=== PATIENT | male | born 1955 | race Hispanic/Latino ===

== ENCOUNTER 2017-11-28 09:09 | Emergency (ER) | payer MEDICAID ==
[2017-11-28 09:18] VITALS: RESP 18; TEMP 97.5
--- NOTE | 2017-11-28 09:56 | C.PDOC ---
History Of Present Illness 62 y/o male presents to ED status post slipping on ice and falling backward hitting head prior to arrival. Patient states he got up and went to work but became confused, unsure of what floor he was in and unable to focus. Patient was sent to ED for further evaluation and denies loc, nausea, vomiting, neck pain or visual changes. - HPI Time Seen by Provider: 11/28/17 09:45 Chief Complaint (Nursing): Trauma History Per: Patient History/Exam Limitations: no limitations Onset/Duration Of Symptoms: Hrs Past Medical History Reviewed: Historical Data, Nursing Documentation, Vital Signs Vital Signs: Last Vital Signs Temp 97.5 F L 11/28/17 09:17 Pulse 90 11/28/17 11:47 Resp 18 11/28/17 11:47 BP 113/81 11/28/17 11:47 Pulse Ox 98 11/28/17 13:56 - Medical History PMH: Depression, Hypercholesterolemia Surgical History: No Surg Hx Family History: States: No Known Family Hx - Social History Hx Alcohol Use: No Hx Substance Use: No - Immunization History Hx Tetanus Toxoid Vaccination: No Hx Influenza Vaccination: No Hx Pneumococcal Vaccination: No Review Of Systems Eyes: Negative for: Vision Change Gastrointestinal: Negative for: Nausea, Vomiting Musculoskeletal: Negative for: Neck Pain Neurological: Positive for: Headache. Negative for: Dizziness Physical Exam - Physical Exam Appears: Non-toxic, No Acute Distress Skin: Warm, Dry, No Rash Head: Normacephalic, Swelling (mild swelling to occiput of head), No Laceration Eye(s): bilateral: Normal Inspection, EOMI Nose: Normal Oral Mucosa: Moist Neck: Normal ROM, Supple Chest: Symmetrical Cardiovascular: Rhythm Regular, No Murmur Respiratory: Normal Breath Sounds, No Rales, No Rhonchi, No Wheezing Gastrointestinal/Abdominal: Soft, No Tenderness, No Guarding, No Rebound Extremity: Normal ROM, No Tenderness, Capillary Refill (<2 seconds), No Deformity, No Swelling Extremity: Bilateral: Atraumatic Neurological/Psych: Oriented x3, Normal Speech, Normal Cranial Nerves, No Cerebellar Signs, Normal Motor, Normal Sensation Gait: Steady ED Course And Treatment O2 Sat by Pulse Oximetry: 98 (RA) Pulse Ox Interpretation: Normal - CT Scan/US Head Other Rad Studies (CT/US): Read By Radiologist, Radiology Report Reviewed CT/US Interpretation: No acute intracranial pathology identified. 10mm hypodense focus at the base of the left basal ganglia favored to reflect dilated perivascular space or less likely chronic lacunar infarct. Dictated by Monique Schwarz MD Medical Decision Making Medical Decision Making: Impression: Head injury Plan: Head CT, declined any medication Progress: CT shows No acute intracranial pathology identified. Re-eval Time: 1130 Patient re-evaluated and is sitting comfortably in no distress. He is alert and oriented with no neuro deficits. Neck is supple and non-tender. Patient is stable for discharge. I discussed CT results and provided copy of report. Advised on concussion symptoms and recommend rest and Tylenol. Instruct to follow up with PCP or neurologist if the symptoms persist. Disposition Counseled Patient/Family Regarding: Studies Performed, Diagnosis, Need For Followup - Disposition Referrals: [facility] [Non-Staff] - Disposition: HOME/ ROUTINE Disposition Time: 11:31 Condition: IMPROVED Additional Instructions: Thank you for letting us take care of you today. The emergency medical care you received today was directed at your acute symptoms. Your CT scan does not show any fracture or intracranial bleed. You can take Tylenol for any pain you may have. It may take several days for your symptoms to resolve. You may need to follow up with neurologist if symptoms persist. Please contact your doctor for follwo up. Bring any paperwork you were given at discharge with you along with any medications you are taking to your follow up visit. Our treatment cannot replace ongoing medical care by a primary care provider (PCP) outside of the emergency department. Return to the Emergency Department if your symptoms worsen, do not improve, or if you have any other problems. Thank you for allowing the [facility] team to be part of your care today. Your provider today was SHANEKA Dailey. 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 - Scribe Statement The provider has reviewed the documentation as recorded by the [employer]ee [employer] All medical record entries made by the Scribe were at my direction and personally dictated by me. I have reviewed the chart and agree that the record accurately reflects my personal performance of the history, physical exam, medical decision making, and the department course for this patient. I have also personally directed, reviewed, and agree with the discharge instructions and disposition.
--- NOTE | 2017-11-28 11:06 | CT ---
PROCEDURE: CT HEAD WITHOUT CONTRAST. HISTORY: RAMSEY and occipital soreness s.p fall on ice, no LOC COMPARISON: None available. TECHNIQUE: Axial computed tomography images were obtained through the head/brain without intravenous contrast. Radiation dose: Total exam DLP = 832.68 mGy-cm. This CT exam was performed using one or more of the following dose reduction techniques: Automated exposure control, adjustment of the mA and/or kV according to patient size, and/or use of iterative reconstruction technique. FINDINGS: HEMORRHAGE: No intracranial hemorrhage. BRAIN: No mass effect or edema. 10 mm hypodense focus at the base of the left basal ganglia favored to reflect dilated perivascular space or less likely chronic lacunar infarct. The rizo-white matter differentiation appears intact. Please note that MRI with diffusion imaging is more sensitive in the detection of acute ischemic event. VENTRICLES: No hydrocephalus. CALVARIUM: Unremarkable. PARANASAL SINUSES: Unremarkable as visualized. No significant inflammatory changes. MASTOID AIR CELLS: Unremarkable as visualized. No inflammatory changes. OTHER FINDINGS: None. IMPRESSION: No acute intracranial pathology identified. 10 mm hypodense focus at the base of the left basal ganglia favored to reflect dilated perivascular space or less likely chronic lacunar infarct.
[2017-11-28 11:48] VITALS: BP 113/81; PULSE 90
[2017-11-28 14:30] VITALS: O2SAT 98
== END 2017-11-28 11:48 | disposition home or self-care (01) ==
LOC: C.ER 09:09
DX: S09.90XA Unspecified injury of head, initial encounter (principal); W00.0XXA Fall on same level due to ice and snow, initial encounter; E78.00 Pure hypercholesterolemia, unspecified; F32.9 Major depressive disorder, single episode, unspecified